=== PATIENT | male | born 1960 | race Caucasian/White ===

== ENCOUNTER → 2025-04-11 | Outpatient (CLI) | payer OTHER ==
[~2025-04-11] MED LIST: AMLO10; HYDMOR4 PO; IBUHYD; JARDIANCE25 MG; LEVFLO250; LISI5; METF500; METF500 PO; METO25ER; OMEP20ER; OMEP20ER PO; PYRIDOSTIGMINE180 MG PO; Ramipril10 MG PO; SILD50TA; TOPROL XL50 M1 PO; VITAMIN D3125 MCG PO
[2025-04-11 19:40] LABS: Creatinine, Urine Random 73.2 mg/dL (27.00-270.00); Microalb/Creat Ratio UR, Rand 13.934 mg/g (0.000-30.000); Microalbumin, Random Urine 10.2 mg/L (0.000-20.000)
== END ==
LOC: LAB 15:17 → LAB SHORT 15:17
PROVIDERS: Internal Medicine
DX: E11.65 Type 2 diabetes mellitus with hyperglycemia (principal)
CPT/HCPCS: 82043; 82570